=== PATIENT | female | born 1985 | race Caucasian/White ===

== ENCOUNTER 2024-11-30 09:36 | Emergency (ER) | payer BC ==
[2024-11-30 09:55] VITALS: RESP 18
--- NOTE | 2024-11-30 10:13 | ED ---
Lower Extremity Injury HPI - General Source: patient, RN notes reviewed Mode of arrival: wheelchair Limitations: no limitations - History of Present Illness MD Complaint: ankle injury <Ara Del Cid - Last Filed: 11/30/24 10:10> - General Source: patient, RN notes reviewed <Allyssa Asencio - Last Filed: 11/30/24 13:28> - General Chief Complaint: Extremity Injury, Lower Stated Complaint: Fall Time Seen by Provider: 11/30/24 10:00 - History of Present Illness Initial Comments: Quick Note: This is a 39-year-old female who presents to the emergency department for right ankle pain. Patient slipped on ice this morning and injured her right ankle. Denies hitting her head. Not taking any blood thinners. She has been unable to put weight on the right leg since she fell. (Ara Del Cid) 39-year-old female presenting to the emergency department for right ankle injury 2 hours ago. Patient states she slipped on ice this morning and rolled her right ankle. Denies hitting her head, no other injuries. Unable to weight- bear. (Allyssa Asencio) - Related Data Allergies Allergy/AdvReac Type Severity Reaction Status Date / Time No Known Allergies Allergy Verified 11/30/24 09:48 Review of Systems ROS Other: All systems not noted in ROS Statement are negative. <Ara Del Cid - Last Filed: 11/30/24 10:10> ROS Other: All systems not noted in ROS Statement are negative. <Allyssa Asencio - Last Filed: 11/30/24 13:28> ROS Statement: Those systems with pertinent positive or pertinent negative responses have been documented in the HPI. Past Medical History Additional Past Medical History / Comment(s): eczema Additional Past Surgical History / Comment(s): L oopherectomy Smoking Status: Never smoker Past Alcohol Use History: Rare Past Drug Use History: None Reported <Ara Del Cid - Last Filed: 11/30/24 10:10> General Exam Limitations: no limitations <Ara Del Cid - Last Filed: 11/30/24 10:10> General appearance: alert, in no apparent distress Head exam: Present: atraumatic, normocephalic, normal inspection Right Lower Leg exam: Present: normal inspection, full ROM. Absent: tenderness, swelling Ankle exam: Present: tenderness (Tenderness over lateral and medial malleolus), swelling. Absent: full ROM (Limited range of motion due to pain), deformity Foot/Toe exam: Present: normal inspection, full ROM. Absent: tenderness, swelling Neurovascular tendon exam: Present: no vascular compromise. Absent: pulse deficit, abnormal cap refill, sensory deficit Neurological exam: Present: alert, oriented X3 Psychiatric exam: Present: normal affect, normal mood Skin exam: Present: warm, dry, intact, normal color. Absent: rash <Allyssa Asencio - Last Filed: 11/30/24 13:28> - General Exam Comments Initial Comments: Visual Physical Exam Vital signs reviewed General: Well-appearing, nontoxic, no acute distress. Head: Normocephalic, atraumatic Eyes: PERRLA, EOMI ENT: Airway patent Chest: Nonlabored breathing Skin: No visual rash, normal skin tone Neuro: Alert and oriented 3 Musculoskeletal: No gross abnormalities (Ara Del Cid) Course Vital Signs 11/30/24 11/30/24 09:48 13:04 Temperature 97.6 F 97.8 F Pulse Rate 69 66 Respiratory 18 18 Rate Blood Pressure 107/60 110/81 O2 Sat by Pulse 100 100 Oximetry Procedures - Orthopedic Splinting/Casting Injury #1 Side: right Lower Extremity Injury Location: ankle Lower Extremity Immobilizer: posterior splint, stirrup splint Other Orthopedic Equipment: crutches <Allyssa Asencio - Last Filed: 11/30/24 13:28> - Orthopedic Splinting/Casting Injury #1 Additional Comments: Neurovascularly intact status post splint (Allyssa Asencio) Medical Decision Making <Ara Dle Cid - Last Filed: 11/30/24 10:10> <Allyssa Asencio - Last Filed: 11/30/24 13:28> - Medical Decision Making I performed the QuickNote portion of this chart. Signed Ara Del Cid PA-C. (Ara Del Cid) Was pt. sent in by a medical professional or institution (ELDA Dorsey, SYSTEMS SOFTWARE SPECIALIST, urgent care, hospital, or [facility]...) When possible be specific @ -No Did you speak to anyone other than the patient for history (EMS, parent, family, police, friend...)? What history was obtained from this source @ -No Did you review nursing and triage notes (agree or disagree)? Why? @ -I reviewed and agree with nursing and triage notes Were old charts reviewed (outside hosp., previous admission, EMS record, old EKG, old radiological studies, urgent care reports/EKG's, [facility] records)? Report findings @ -No old charts were reviewed Differential Diagnosis (chest pain, altered mental status, abdominal pain women, abdominal pain men, vaginal bleeding, weakness, fever, dyspnea, syncope, headache, dizziness, GI bleed, back pain, seizure, CVA, palpatations, mental health, musculoskeletal)? @ -Differential Musculoskeletal Muscular strain, contusion, ligament sprain, fracture, arthritis, septic arthritis, bursitis, cellulitis, muscle spasm, nerve compression, DVT, arterial occlusion, herpes zoster, electrolyte abnormality, tumor.... This is not meant to be in all inclusive list EKG interpreted by me (3pts min.). @ -None X-rays interpreted by me (1pt min.). @ -X-ray right ankle reveals unstable bimalleolar ankle fractures CT interpreted by me (1pt min.). @ -None done U/S interpreted by me (1pt. min.). @ -None done What testing was considered but not performed or refused? (CT, X-rays, U/S, labs)? Why? @ -None What meds were considered but not given or refused? Why? @ -None Did you discuss the management of the patient with other professionals (professionals i.e. , PA, SYSTEMS SOFTWARE SPECIALIST, lab, RT, psych nurse, social work therapist, attorney lawyer, teacher, chief innovation officer, onsite case manager)? Give summary @ -I spoke with Shaniqua CARR on-call orthopedics who recommends discharge with splint and close follow-up Was smoking cessation discussed for >3mins.? @ -No Was critical care preformed (if so, how long)? @ -No Were there social determinants of health that impacted care today? How? (Homelessness, low income, unemployed, alcoholism, drug addiction, transportation, low edu. Level, literacy, decrease access to med. care, nursing home, rehab)? @ -No Was there de-escalation of care discussed even if they declined (Discuss DNR or withdrawal of care, Hospice)? DNR status @ -No What co-morbidities impacted this encounter? (DM, HTN, Smoking, COPD, CAD, Cancer, CVA, ARF, Chemo, Hep., AIDS, mental health diagnosis, sleep apnea, morbid obesity)? @ -None Was patient admitted / discharged? Hospital course, mention meds given and route, prescriptions, significant lab abnormalities, going to OR and other pertinent info. @ -Discharge. This is a 39-year-old female with right ankle injury. Neurovascularly intact. X-ray right ankle reveals unstable bimalleolar ankle fractures. Discussed results with patient. Orthopedic stirrup and posterior splint was placed and patient was provided with crutches. Appropriate return precautions and follow-up care discussed. Case was discussed with my ED attending Dr. Wright. Undiagnosed new problem with uncertain prognosis? @ -No Drug Therapy requiring intensive monitoring for toxicity (Heparin, Nitro, Insulin, Cardizem)? @ -No Were any procedures done? @ -Orthopedic splints performed right ankle Diagnosis/symptom? @ -Right ankle fracture Acute, or Chronic, or Acute on Chronic? @ -Acute Uncomplicated (without systemic symptoms) or Complicated (systemic symptoms)? @ -Uncomplicated Side effects of treatment? @ -No Exacerbation, Progression, or Severe Exacerbation? @ -No Poses a threat to life or bodily function? How? (Chest pain, [place], [place], pneumonia, PE, COPD, DKA, ARF, appy, cholecystitis, CVA, Diverticulitis, Homicidal, Suicidal, threat to staff... and all critical care pts) @ -No (Allyssa Asencio) Disposition <Ara Del Cid - Last Filed: 11/30/24 10:10> Is patient prescribed a controlled substance at d/c from ED?: No Time of Disposition: 12:36 <Allyssa Asencio - Last Filed: 11/30/24 13:28> Clinical Impression: Closed right ankle fracture Disposition: HOME SELF-CARE Condition: Stable Instructions (If sedation given, give patient instructions): Ankle Fracture (ED) Additional Instructions: Follow-up with orthopedics as discussed. Remain nonweightbearing. Keep splint dry. Please return to the Emergency Department if symptoms worsen or any other concerns. Referrals: None,Stated [Primary Care Provider] - 1-2 days Stan Solitario DO [Doctor of Osteopathic Medicine] - 1-2 days
--- NOTE | 2024-11-30 10:58 | XR ---
EXAMINATION TYPE: XR ankle complete 3 views RT DATE OF EXAM: 11/30/2024 COMPARISON: NONE CLINICAL INDICATION: Female, 39 years old with history of pain after trauma; FINDINGS: There is a mildly comminuted oblique fracture distal fibula. Posterior displacement of the 4 mm. There is a small ossific fragment measuring 8 mm below the medial malleolus which is age indete rminate, possibly acute. However, in addition there is favian medial clear space widening of 8 mm. Jonnie ar dome is intact. Subtalar joint align. Smooth delineation Achilles tendon. IMPRESSION: Unstable bimalleolar ankle fractures versus bimalleolar equivalent (the 8 mm bone fragment below the medial malleolus is age indeterminate). [facility], , 11/30/2024 10:56 AM
[2024-11-30] MEDS: IBUPROFEN 800 MG TAB PO STA (11:28)
[2024-11-30] MEDS: ACET/COD 300 MG/30 MG STARTER PACK 6 TAB BTL PO STA (12:52)
[2024-11-30 13:06] VITALS: BP 110/81; PULSE 66; TEMP 97.8
== END 2024-11-30 13:16 | disposition home or self-care (01) ==
LOC: EC 09:36
DX: S82.891A Other fracture of right lower leg, initial encounter for closed fracture (principal); W00.0XXA Fall on same level due to ice and snow, initial encounter
CPT/HCPCS: 29125; 99283

== ENCOUNTER 2024-12-07 07:59 | Day surgery (SDC) | payer BC ==
[2024-12-04 13:16] VITALS: BMI 23.3
[~2024-12-07 07:59] MED LIST: HYDROmorphone 0.5 MG/0.5 ML SYRINGE IVP PRN; LACTATED RINGERS 1,000 ML IV SCH; SCOPOLAMINE 1 MG/72 HR PATCH TRANSDERM ONE
[2024-12-07] MEDS: IV FLUID CONTINUATION 1,000 ML IV ONE (09:03)
[2024-12-07] MEDS: DEXAMETHASONE SOD PHOSPHATE 4 MG/ML 1 ML VIAL IV ONE (09:12)
[2024-12-07] MEDS: ONDANSETRON 4 MG/2 ML VIAL IVP ONE (09:12)
[2024-12-07 09:16] VITALS: TEMP 98.6
[2024-12-07] MEDS: MIDAZOLAM 2 MG/2 ML VIAL IV PRN (09:27)
--- NOTE | 2024-12-07 09:43 | P.ANPRN ---
Procedure Note - Anesthesia - Nerve Block Performed Right Adductor Canal Single Time Out Performed: Yes Date of Procedure: 12/07/24 Procedure Start Time: Procedure Stop Time: Location of Patient: PreOp Indication: Acute Post-Operative Pain, Requested by Surgeon Sedation Type: Sedate with meaningful contact maintained Preparation: Sterile Prep Position: Supine Needle Types: Pajunk Needle Gauge: 21 Ultrasound used to visualize needle placement: Yes Ultrasound used to observe medication spread: Yes Injectate: 0.5% Ropivacaine (see comment for volume) (20 ml + 10 ml NS +4 mg Dexamethasone) Blood Aspirated: No Pain Paresthesia on Injection Noted: No Resistance on Injection: Normal Image Stored and Saved: Yes Events: Uneventful and Well Tolerated
--- NOTE | 2024-12-07 09:45 | P.ANPRN ---
Procedure Note - Anesthesia - Nerve Block Performed Right Popliteal Single Time Out Performed: Yes Date of Procedure: 12/07/24 Procedure Start Time: : Procedure Stop Time: :36 Location of Patient: PreOp Indication: Acute Post-Operative Pain, Requested by Surgeon Sedation Type: Sedate with meaningful contact maintained Preparation: Sterile Prep Position: Left Lateral Needle Types: Pajunk Needle Gauge: 21 Ultrasound used to visualize needle placement: Yes Ultrasound used to observe medication spread: Yes Injectate: 0.5% Ropivacaine (see comment for volume) (20 ml + 10 ml NS + 4 mg Dexamethasone) Blood Aspirated: No Pain Paresthesia on Injection Noted: No Resistance on Injection: Normal Image Stored and Saved: Yes Events: Uneventful and Well Tolerated
[2024-12-07] MEDS: fentaNYL (PF) 50 MCG/ML 2 ML AMP IVP PRN (09:47)
[2024-12-07] MEDS ORDERED: GLYCOPYRROLATE 0.2 MG/ML 2 ML VIAL ONE (10:13)
[2024-12-07] MEDS ORDERED: SODIUM CHLORIDE 0.9% (PF) 10 ML VIAL ONE (10:13)
[2024-12-07] MEDS ORDERED: LIDOCAINE 1% INJ 10MG/ML (20 ML MDV) ONE (10:13)
[2024-12-07] MEDS ORDERED: DEXAMETHASONE SOD PHOSPHATE 4 MG/ML 1 ML VIAL ONE (10:13)
[2024-12-07] MEDS ORDERED: SUCCINYLCHOLINE CHLORIDE 200 MG/10 ML VIAL IV ONE (10:13)
[2024-12-07] MEDS ORDERED: fentaNYL (PF) 50 MCG/ML 2 ML AMP ONE (10:13)
[2024-12-07] MEDS ORDERED: PHENYLEPHRINE-0.9% NACL SYG 1,000 MCG/10 ML SYRINGE ONE (10:13)
[2024-12-07] MEDS ORDERED: MIDAZOLAM 2 MG/2 ML VIAL ONE (10:13)
[2024-12-07] MEDS ORDERED: PROPOFOL 10 MG/ML 20 ML VIAL IV ONE (10:13)
[2024-12-07] MEDS ORDERED: ROPIVACAINE 5 MG/ML 30 ML VIAL ONE (10:13)
[2024-12-07] MEDS: ceFAZolin 1,000 MG in SODIUM CHLORIDE 0.9% 1,000 ML IRRIGATION ONE (10:18)
--- NOTE | 2024-12-07 12:07 | P.OP ---
Date of Procedure: 12/07/24 Preoperative Diagnosis: 1. Displaced lateral malleolus fracture right ankle 2. Ruptured syndesmosis right ankle 3. Ruptured deltoid ligament right ankle Postoperative Diagnosis: 1. Displaced lateral malleolus fracture right ankle 2. Ruptured syndesmosis right ankle 3. Ruptured AITFL and ATFL ligaments right ankle Procedure(s) Performed: 1. Open reduction with internal fixation right lateral malleolus 2. Open reduction internal fixation right syndesmosis 3. Primary repair of ligaments right ankle Implants: Trudi anatomic lateral malleoli are fracture plate with 3.5 locking and nonlocking screws. Arthrex tight rope x 1 Arthrex 4.75 mm swivel lock anchor x 1 Arthrex fiber tack anchor x 1 Anesthesia: STACYA Surgeon: Jordan Perry Estimated Blood Loss (ml): 5 Pathology: none sent Condition: stable Disposition: PACU Description of Procedure: Prior to the patient being brought to the operative room, anesthesia administered a nerve block on the operative lower extremity. The patient was brought into the operating room and placed on the table in the supine position. Timeout was taken to confirm the correct patient identifiers, correct laterality of surgery, and correct procedure. Once all staff of the room was in agreement with the timeout, the patient was induced and placed under general anesthesia. A well-padded tourniquet was placed the right thigh and a wedge beneath the right hip to internally rotate the right leg. The right leg was then prepped and draped in the usual manner. The leg was exsanguinated, the knee flexed, and the tourniquet inflated to 250 mmHg. Tension was directed over the lateral ankle where a linear incision was made over the lateral malleolus just anterior to the midline of the bone. The incision was deepened down to the subcutaneous tissue careful to identify, void, and retract any neurovascular structures and cauterize any bleeding vessels. Blunt dissection was carried down to the level of the periosteum as well as the fracture. The hematoma was evacuated. The soft tissue was reflected off the lateral malleolus, however the periosteum was left intact. The fracture fragments were distracted and any interposing hematoma or soft tissue was sharply removed. Next the anterior tibiofibular articulation was identified. Any interposing soft tissue was evacuated. It was obvious that there was full thickness rupture of the AITFL. Attention was redirected back to the lateral malleolus, where bone reduction forceps were utilized to reduce the fracture. Fluoroscopy confirmed anatomic reduction of the fracture on multiple views. A 3.5 mm cortical screw was used as a interfragmentary compression screw across the fracture. In anticipation of repairing the AITFL, Arthrex fiber tape was fed through a temporary fixation hole in the lateral malleoli are plate. Then the plate was positioned on the lateral malleolus and adjusted under fluoroscopy until it was properly aligned. Then temporary fixation was done. Lateral view showed proper alignment of the plate. Through the holes proximal to the fracture, a central neck locking screw was placed first to compress the plate against the bone and then locking screws were placed on either side of the for screw. Distally to the fracture, the most distal hole of the plate was filled with a nonlocking screw to help compress the plate. 2 nonlocking screws were placed in the holes just superior to it. Fluoroscopic imaging confirmed proper placement of the hardware as well as anatomic alignment of the fracture. Under direct utilization, the fibula was reduced into the corresponding groove in the tibia for the syndesmotic repair. A large periarticular clamp was used to reduce it. The clamp was not overly tightened and the ankle was held in maximum dorsiflexion as it was applied. The fiber tape suture that was previously fed through the plate, was then fed through a 4 points of 5 mm swivel lock. A drill hole had been done anterior of the tibia and superior to the ankle joint. The hole was tapped and then the anchor was inserted, and then utilizing proper tensioning techniques the anchor and suture were inserted into the drill hole the anchor was advanced until locked the suture in place at that point stress testing was done on the syndesmosis. With external rotation and eversion stress testing there was no significant gapping of either the syndesmosis or the medial clear space. Next was the application of the tight rope anchor. An appropriate hole in the plate was chosen and then drilling was performed from lateral to medial with slight anterior angulation, until the medial cortex was breached. Fluoroscopic imaging confirmed the proper placement of the drill on AP and lateral views. The drill was removed and then the tight rope was inserted and advanced until the button cleared the medial tibial cortex. The button was deployed and the manipulated to sit flat against the medial cortex of the tibia. Then the torpedo specialist was retracted and the suture graft and tightened until the lateral button engaged the plate. The ankle was held in maximum dorsiflexion while this is being done. The periarticular clamp was removed, and then stress testing was performed again under live fluoroscopy. There was no separation of the fibula and tibia at the syndesmosis and there was no increase in the medial joint space. However when inverted there was significant talar tilt. So the decision was made to do a primary repair of the lateral ankle ligaments, specifically the ATFL and CFL ligaments. A single fiber tack anchor was then drilled and inserted into the anterior surface of the lateral malleolus where the anterior talofibular ligament would normally originate from. Then the suture attached to the anchor was used to graft the ligamentous structures of the lateral ankle. Then the ankle was held in maximum dorsiflexion and eversion. The sutures were then fully tied with the ankle in this position. Once that was completed more stress testing was done under fluoroscopy which showed resolution of the talar tilt. The wound and joint were thoroughly irrigated with antibiotic saline. Deep closure was done with 2-0 Vicryl. Subcutaneous closure was done with 3-0 Monocryl. Skin closure was completed with padmini. An Arthrex jumpstart was placed over the incision, and then a dry sterile dressing was applied to the ankle. The tourniquet was released and capillary refill returned all digits of the foot. A well-padded, well molded plaster posterior mold/sugar-tong splint was placed on the leg. The ankle was held in neutral position until the splint was dried. Anesthesia was reversed and the patient was taken recovery with vital signs stable.
--- NOTE | 2024-12-07 12:08 | FL ---
EXAMINATION TYPE: FL guidance operating room, XR ankle complete RT DATE OF EXAM: 12/07/2024 11:38 AM COMPARISON: Chest radiographs from CLINICAL INDICATION: Female, 39 years old with history of OIF Rt Ankle, , FLUOROSCOPY ORIF Rt Ankle 1.08min fluoro time .[address] Perry 4 images are submitted for lateral plate and screw fixation of the lateral malleolus as well as trans syndesmotic tight rope fixation. Alignment appears grossly anatomic and hardware appears uncomplicated. [facility], , 12/07/2024 12:06 PM
[2024-12-07 12:49] VITALS: RESP 16
[2024-12-07 13:21] VITALS: BP 121/73; PULSE 82
== END 2024-12-07 13:47 | disposition home or self-care (01) ==
LOC: OR 07:59
PROVIDERS: ATTEND Podiatrist
DX: S82.61XA Displaced fracture of lateral malleolus of right fibula, initial encounter for closed fracture (principal); G89.18 Other acute postprocedural pain; F41.9 Anxiety disorder, unspecified; M19.90 Unspecified osteoarthritis, unspecified site; L30.9 Dermatitis, unspecified; Z79.899 Other long term (current) drug therapy; Z79.1 Long term (current) use of non-steroidal anti-inflammatories (NSAID); X58.XXXA Exposure to other specified factors, initial encounter
CPT/HCPCS: 64447; 81025; 64445; 73610; 27792; 27829; C1713 ×2; J2250; J0330; J1100; J0690 ×2; J2405; J2003; J3010; J2795; J2704; J2371; J1596

== ENCOUNTER → 2025-05-10 | Outpatient (CLI) | payer BC ==
--- NOTE | 2025-05-10 14:11 | MM ---
Reason for Exam: Screening (asymptomatic). Baseline mammogram. Patient History: Menarche at age 10. Patient has no children. Last menstrual period: 04/19/2025 Risk Values: Tamiko 5 year model risk: 0.7%. NCI Lifetime model risk: 11.0%. Prior Study Comparison: Patient's first Mammogram. No prior studies available for comparison. Tissue Density: The breasts are extremely dense, which lowers the sensitivity of mammography. Findings: Analyzed By CAD. There is no suspicious group of microcalcifications or new suspicious mass in either breast. Overall Assessment: Benign, BI-RAD 2 Management: Screening Mammogram of both breasts in 1 year. . Patient should continue monthly self-breast exams. A clinical breast exam by your physician is recommended on an annual basis. This exam should not preclude additional follow-up of suspicious palpable abnormalities. Note on Tamiko scores and lifetime risk: 1. A Tamiko score greater than 3% is considered moderate risk. If this is the case, consider specialist referral to assess eligibility for a risk reducing agent. 2. If overall lifetime risk for the development of breast cancer is 20% or higher, the patient may qualify for future screening with alternating mammogram and breast MRI. [facility], , 05/10/2025 2:08 PM. Electronically signed and approved by: Wilver Kim M.D. Radiologis
== END | disposition home or self-care (01) ==
LOC: RADMAMWWP 13:25
PROVIDERS: ATTEND Family Medicine
DX: Z12.31 Encounter for screening mammogram for malignant neoplasm of breast (principal); R92.343 Mammographic extreme density, bilateral breasts
CPT/HCPCS: 77063; 77067

== ENCOUNTER → 2025-05-10 | Outpatient (CLI) | payer BC ==
--- NOTE | 2025-05-10 15:07 | US ---
EXAMINATION TYPE: US pelvis complete transvag DATE OF EXAM: 05/10/2025 COMPARISON: NONE CLINICAL INDICATION: Female, 39 years old with history of R19.00 INTRA ABDOMINAL AND PELV SWELLING MA SS LUMP; Pt states she has felt a lump on left side of pelvis since January 2023. No abnormal bleeding. No pain. No pregnancies. Pt said 20 years ago she had a cyst on left side that ruptured and has surgery to "clean it out" TECHNIQUE: Transvaginal (TV) and Transabdominal (TA) . Transabdominal grayscale sonographic images of the pelvis were acquired. Transvaginal sonographic im ages were medically necessary to better assess the following anatomy: ovaries Doppler imaging: Not performed. FINDINGS: Date of LMP: March 2025 EXAM MEASUREMENTS: Uterus: 8.4 x 6.0 x 5.5.3 cm Endometrial Stripe: 1.5 cm 1. Uterus: Retroverted large hypoechoic heterogeneous area seen in fundus measuring 8.0 x 8.2 x 6.0c m 2. Endometrium: wnl 3. Right Ovary: not visualized 4. Left Ovary: unsure if visualized 5. Bilateral Adnexa: In the left adnexa there is a large hypoechoic area with internal moving echoes . This appears avascular and walled off, but with irregular borders. 6. Posterior cul-de-sac: wnl IMPRESSION: 1. Large fundal uterine fibroid likely present. 2. Large complex cyst left adnexal region. Additional workup is recommended. O-rads 4. O-RADS 2021 [email or web address] [facility], , 05/10/2025 3:05 PM
== END | disposition home or self-care (01) ==
LOC: RADUSWWP 13:22
PROVIDERS: ATTEND Family Medicine
DX: D25.9 Leiomyoma of uterus, unspecified (principal)
CPT/HCPCS: 76830; 76856